=== PATIENT | female | born 1940 | race Caucasian/White ===

== ENCOUNTER 2017-07-31 09:52 | Day surgery (SDC) | payer MEDICARE, OTHER ==
[~2017-07-31] VITALS: Ht 157.5 cm; Wt 102.7 kg
--- NOTE | ~2017-07-31 | OP ---
PATIENT NAME: BARRIE DELGADO MEDICAL RECORD: [id number] :41 LOCATION:[facility] ADMISSION DATE: SURGEON: DONALD BANKS DO DATE OF OPERATION: 07/31/2017 PROCEDURE: EGD with biopsies. INDICATIONS FOR PROCEDURE: Epigastric pain, Quispe's esophagus, heartburn. SCOPE: Olympus video gastroscope. MEDICATIONS: Propofol 170 mg IV per anesthesia. ESTIMATED BLOOD LOSS: Minimal. COMPLICATIONS: None. FINDINGS: Informed consent was given. The patient was made comfortable with the above medication. After reaching an adequate level of sedation by slow IV push, the patient was placed on her left side. The endoscope was advanced under direct visualization through the mouth to the second portion of the duodenum. The upper, middle, and lower thirds of the esophagus appeared normal. At the GE junction, there was some mild evidence of LA class A reflux-induced esophagitis. There was also evidence of possible Quispe's esophagus. Multiple cold forceps biopsies were taken at the squamocolumnar junction to rule out the presence of continued Quispe's. There were no obvious lesions or nodules that required extra biopsies. The endoscope was advanced beyond the GE junction into the stomach and retroflexed to view the cardia, where a small sliding hiatal hernia was present. Throughout the entire stomach, there were patchy areas of erythema and granularity consistent with gastritis. Random biopsies were taken to submit for histology and to rule out H. pylori. The endoscope was advanced beyond the pylorus into the duodenum where the bulb and second portion of the duodenum appeared normal. The endoscope was withdrawn from the patient. The patient tolerated the procedure well and there were no complications. IMPRESSION: 1. LA class A reflux-induced esophagitis. 2. Possible Quispe's esophagus, biopsies pending. 3. Small sliding hiatal hernia. 4. Patchy discontinuous gastritis with biopsies pending. PLAN AND RECOMMENDATIONS: 1. Discharge home when recovery parameters are met. 2. Continue current diet. 3. Continue current medications including pantoprazole 40 mg daily. 4. Consider adding Pepcid or Zantac xrni-qem-trgaelm dosing in the evening. 5. Follow up biopsy results and treat as indicated. 6. Will likely need a repeat upper endoscopy in 2 years for surveillance of short segment Quispe's esophagus. Final recommendations will be dependent on results of biopsies taken today. TRANSINT:[id number] Voice Confirmation ID: [id number] DOCUMENT ID: [id number] OPERATIVE REPORT [id number] BARRIE DELGADO NATHAN A DO at 1119 CC: [id number] DICTATION DATE: 07/31/17 1247 WHALE FISHERMAN: 07/31/17 1319 [facility] 07/31/17 [place] [id number] [place] [id number]
[~2017-07-31 09:52] MED LIST: ARMOUR THYROID90 MG PO; ASPIRIN EC81 M1 PO; CARDURA2 MG PO; CLARITIN 10 MG10 MG PO; COREG12.5 MG PO; CRESTOR10 MG PO; EDARBI40 MG PO; ESTRACE 0.5 MG0.5 MG PO; KLOR-CON M2020 MEQ PO; LASIX20 MG PO; MIRALAX17 GM PO; MIRAPEX1 MG PO; NYSTATIN15 GM TP; OCUVITE TABLET1 TA1 PO; OXYCONTIN10 MG PO; PERCOCET 10/3251 TA1 PO; PROMETRIUM100 MG PO; PROTONIX40 MG PO; SYSTANE 0.3-0.4%5 ML EACH EYE; VITAMIN B COMPL1 TAB PO; VITAMIN D5000 UNIT PO; VITAMIN E400 UNI2 PO
[2017-07-31] MEDS ORDERED: LEVOXYL75 MCG PO (10:22)
[2017-07-31] MEDS ORDERED: GABAPENTIN100 MG PO (10:23)
[2017-07-31] MEDS ORDERED: PROVIGIL200 MG (10:25)
[2017-07-31] MEDS ORDERED: ALDACTONE25 MG PO (10:26)
[2017-07-31] MEDS ORDERED: TORSEMIDE20 MG PO (10:26)
[2017-07-31 10:34] VITALS: BP 151/78; Ht 157.5 cm; Wt 102.7 kg
[2017-07-31 10:41] LABS: BASOPHILS 0.3 % (0-2); EOSINOPHILS 2.5 % (0-7); HEMATOCRIT 35.9 % (36.0-48.0); HEMOGLOBIN 11.5 g/dL (12-16); IMMATURE GRANULOCYTES 0.2 % (0-5); MCH 29.6 pg (26.0-34.0); MCV 92.5 fL (80.0-100.0); PLATELET COUNT 227 10x3/uL (130-400); RBC 3.88 10x6/uL (4.00-5.40); RDW 14.6 % (11.5-14.5); WBC 6.1 10x3/uL (4.8-10.8)
[2017-07-31 10:54] LABS: ANION GAP 13.4 mmol/L (8-16); CALCIUM 9.3 mg/dL (8.5-10.1); CARBON DIOXIDE 25.8 mmol/L (21.0-32.0); CREATININE - SERUM 1.2 mg/dL (0.6-1.3); POTASSIUM - SERUM 4.2 mmol/L (3.5-5.1)
== END 2017-07-31 14:00 | disposition home or self-care (01) ==
LOC: D.OPS 09:52
PROVIDERS: Anesthesiology
DX: R10.13 Epigastric pain (principal); K22.70 Barrett's esophagus without dysplasia; K44.9 Diaphragmatic hernia without obstruction or gangrene; K21.0 Gastro-esophageal reflux disease with esophagitis; I10 Essential (primary) hypertension; I50.9 Heart failure, unspecified; G47.30 Sleep apnea, unspecified; E03.9 Hypothyroidism, unspecified; Z01.812 Encounter for preprocedural laboratory examination

== ENCOUNTER 2017-09-18 11:21 | Day surgery (SDC) | payer MEDICARE, OTHER ==
[~2017-09-18] VITALS: Ht 157.5 cm; Wt 106.4 kg
--- NOTE | ~2017-09-18 | OP ---
PATIENT NAME: BARRIE DELGADO MEDICAL RECORD: [id number] :41 LOCATION:[facility] ADMISSION DATE: SURGEON: DONALD BANKS DO DATE OF OPERATION: 09/18/2017 PROCEDURE: Colonoscopy with polypectomy. INDICATIONS FOR PROCEDURE: Left lower quadrant abdominal pain, colon polyps, gas and bloating. SCOPE: Olympus video pediatric colonoscope. MEDICATIONS: Propofol 450 mg IV per anesthesia. WITHDRAWAL TIME: 9 minutes. ESTIMATED BLOOD LOSS: Minimal. COMPLICATIONS: None. FINDINGS: Informed consent was given. The patient was made comfortable with the above medication. After reaching an adequate level of sedation by slow IV push, the patient was placed on her left side. A digital rectal examination was performed and was normal. The endoscope was then advanced under direct visualization through the rectum to the cecum with confirmation by visualization of the appendiceal orifice and ileocecal valve. The endoscope was slowly withdrawn and mucosa was carefully examined. The prep quality was good. There was a single benign appearing sessile polyp located in the cecum, which measured approximately 2 mm in diameter. It was removed using hot forceps in 1 piece and completely retrieved. In the transverse colon, there were two benign-appearing sessile polyps, which ranged in size from 3-5 mm in diameter. They were both removed using hot forceps. In the distal descending colon and the entire sigmoid colon, there was evidence of mild diverticulosis without diverticulitis. Retroflexion was performed in the rectum with visualization of a normal appearing rectal wall. The endoscope was then withdrawn from the patient. The patient tolerated the procedure well and there were no complications. IMPRESSION: 1. Diverticulosis involving the distal descending colon and sigmoid colon. 2. Three polyps as described above removed using hot forceps. PLAN AND RECOMMENDATIONS: 1. Discharge home when recovery parameters are met. 2. Follow up biopsy specimen results. 3. High fiber diet. 4. Consider supplementation of diet with Metamucil or equivalent psyllium husk fiber 1-2 tablespoons daily to maintain regular soft bowel movements. 5. Recall colonoscopy in 3-5 years. TRANSINT:[id number] Voice Confirmation ID: [id number] DOCUMENT ID: [id number] OPERATIVE REPORT [id number] BARRIE DELGADO DONALD BANKS DO at 6725 CC: [id number] DICTATION DATE: 09/18/17 1419 [employer]URANCE [employer] TITLES: 09/18/[address] [facility] 09/18/17 [place] [id number] [place] [id number]
[~2017-09-18 11:21] MED LIST changes: +ALDACTONE25 MG PO; +GABAPENTIN100 MG PO; +LEVOXYL75 MCG PO; +PROVIGIL200 MG; +TORSEMIDE20 MG PO
[2017-09-18 12:39] VITALS: BP 157/66; Ht 157.5 cm; Wt 106.4 kg
[2017-09-18] MEDS ORDERED: K-DUR20 MEQ PO (12:45)
[2017-09-18] MEDS ORDERED: SINGULAIR10 MG PO (12:46)
[2017-09-18] MEDS ORDERED: MIRAPEX1 MG PO (12:46)
[2017-09-18] MEDS ORDERED: ZOCOR40 MG PO (12:48)
[2017-09-18] MEDS ORDERED: MYCOSTATIN CREA15 GM TOPICAL (12:49)
[2017-09-18] MEDS ORDERED: AVAPRO150 MG PO (12:49)
[2017-09-18] MEDS ORDERED: HYDROCODON-ACE1 EAC9 PO (12:50)
[2017-09-18 12:51] LABS: ANION GAP 14.1 mmol/L (8-16); BASOPHILS 0.2 % (0-2); CALCIUM 9.1 mg/dL (8.5-10.1); CARBON DIOXIDE 25.9 mmol/L (21.0-32.0); EOSINOPHILS 1.6 % (0-7); HEMATOCRIT 35.6 % (36.0-48.0); HEMOGLOBIN 11.3 g/dL (12-16); IMMATURE GRANULOCYTES 0.2 % (0-5); LYMPHOCYTES 27.2 % (15-50); MCH 29.6 pg (26.0-34.0); MCHC 31.7 g/dL (31.0-37.0); MCV 93.2 fL (80.0-100.0); MEAN PLATELET VOLUME 9.1 fL (7.4-10.4); MONOCYTES 9.9 % (2-11); NEUTROPHILS 60.9 % (40-80); PLATELET COUNT 249 10x3/uL (130-400); RBC 3.82 10x6/uL (4.00-5.40); RDW 13.7 % (11.5-14.5); WBC 4.9 10x3/uL (4.8-10.8)
[2017-09-18] MEDS ORDERED: ASCORBIC ACID500 MG PO (12:53)
[2017-09-18] MEDS ORDERED: MAGNESIUM OXID250 MG PO (12:54)
[2017-09-18] MEDS ORDERED: MERIBIN5 MG PO (12:54)
== END 2017-09-18 15:30 | disposition home or self-care (01) ==
LOC: D.OPS 11:21
PROVIDERS: Anesthesiology
DX: K57.30 Diverticulosis of large intestine without perforation or abscess without bleeding (principal); K63.5 Polyp of colon; Z01.812 Encounter for preprocedural laboratory examination

== ENCOUNTER → 2019-01-21 10:59 | Outpatient (CLI) | payer MEDICARE, OTHER ==
[2017-09-18 12:39] VITALS: BMI 42.9
[~2019-01-21 10:59] MED LIST changes: +ASCORBIC ACID500 MG PO; +AVAPRO150 MG PO; +HYDROCODON-ACE1 EAC9 PO; +K-DUR20 MEQ PO; +MAGNESIUM OXID250 MG PO; +MERIBIN5 MG PO; +MYCOSTATIN CREA15 GM TOPICAL; +SINGULAIR10 MG PO; +ZOCOR40 MG PO
== END | disposition home or self-care (01) ==
LOC: D.RT 10:59
PROVIDERS: ATTEND Family Medicine
DX: R09.02 Hypoxemia (principal)

== ENCOUNTER 2020-01-01 05:55 | Day surgery (SDC) | payer MEDICARE, OTHER ==
[~2020-01-01] VITALS: Ht 157.5 cm; Wt 116.4 kg
[2020-01-01 06:27] LABS: BASOPHILS 0.3 % (0-2); EOSINOPHILS 2.7 % (0-7); HEMATOCRIT 36.8 % (36.0-48.0); HEMOGLOBIN 11.3 g/dL (12-16); IMMATURE GRANULOCYTES 0.2 % (0-5); LYMPHOCYTES 22.5 % (15-50); MCH 27.9 pg (26.0-34.0); MCHC 30.7 g/dL (31.0-37.0); MCV 90.9 fL (80.0-100.0); MEAN PLATELET VOLUME 9.1 fL (7.4-10.4); MONOCYTES 12.6 % (2-11); NEUTROPHILS 61.7 % (40-80); PLATELET COUNT 229 10x3/uL (130-400); RBC 4.05 10x6/uL (4.00-5.40); RDW 15.4 % (11.5-14.5); WBC 6.3 10x3/uL (4.8-10.8)
[2020-01-01 06:36] LABS: INR 1.02 (0.85-1.17); PROTIME 13.4 SECONDS (11.6-15.0)
[2020-01-01 06:40] LABS: ANION GAP 11.1 mmol/L (8-16); CALCIUM 9.1 mg/dL (8.5-10.1); CARBON DIOXIDE 31.4 mmol/L (21.0-32.0); CREATININE - SERUM 1.2 mg/dL (0.6-1.3); POTASSIUM - SERUM 4.5 mmol/L (3.5-5.1)
[2020-01-01] MEDS ORDERED: NITROSTAT0.4 MG SL (06:55)
[2020-01-01] MEDS ORDERED: TRIBENZOR 40-11 EAC1 PO (06:55)
[2020-01-01] MEDS ORDERED: BENTYL10 MG PO (06:56)
[2020-01-01] MEDS ORDERED: TORSEMIDE20 MG PO (06:56)
[2020-01-01] MEDS ORDERED: SINGULAIR10 MG PO (06:57)
[2020-01-01] MEDS ORDERED: GABAPENTIN100 MG PO (06:58)
[2020-01-01] MEDS ORDERED: ROPINIROLE HCL1 MG PO (06:58)
[2020-01-01] MEDS ORDERED: PROTONIX40 MG PO (06:58)
[2020-01-01] MEDS ORDERED: SYNTHROID125 MCG PO (06:59)
[2020-01-01] MEDS ORDERED: ALENDRONATE SOD35 MG PO (07:00)
[2020-01-01] MEDS ORDERED: MOBIC7.5 MG PO (07:00)
[2020-01-01] MEDS ORDERED: CARAFATE1 G PO (07:00)
[2020-01-01 07:06] VITALS: BP 151/64; Ht 157.5 cm; Wt 116.4 kg
--- NOTE | 2020-01-01 14:59 | NUR ---
0915 IV DC'ED WITH CATH INTACT. DRESSING. Destiney WILEY R.N. 0945 DRESSED AWAKE & LAERT. GIVEN DISCHARGE INFORMATION INCLUDING: MED REC, SHEET LISTING NSAIDS TO AVOID, GERD HANDOUT, & [facility] POST ENDOSCOPIC D/C INSTRUCTIONS. PT VOICED UNDERSTANDING. TO PRIVATE CAR PER WHEELCHAIR BY THIS NURSE. HOME WITH SISTER. Destiney WILEY R.N.
--- NOTE | 2020-01-04 07:06 | OP ---
PATIENT NAME: BARRIE DELGADO MEDICAL RECORD: [id number] :41 LOCATION:[facility] ADMISSION DATE: SURGEON: DONALD BANKS DO DATE OF OPERATION: 01/01/2020 PROCEDURE: EGD with biopsies. INDICATIONS FOR PROCEDURE: Epigastric pain, GERD, history of possible Quispe's esophagus. This is a 2-year surveillance endoscopy. SCOPE: Olympus video gastroscope. MEDICATIONS: Propofol 120 mg IV per anesthesia. ESTIMATED BLOOD LOSS: Minimal. COMPLICATIONS: None. FINDINGS AND DESCRIPTION OF PROCEDURE: Informed consent was given. The patient was made comfortable with the above medication. After reaching an adequate level of sedation by slow IV push, the patient was placed on her left side. The endoscope was advanced under direct visualization through the mouth to the second portion of the duodenum with ease. The entire esophagus appeared normal down to the GE junction. At the GE junction, there was evidence of LA class A reflux-induced esophagitis. There was no obvious Quispe's esophagus. Cold forceps biopsies were taken from the squamocolumnar junction to submit for histopathology and to rule out the presence of Quispe's. The endoscope was advanced beyond the GE junction into the stomach and retroflexed to view the cardia, where there was a small sliding hiatal hernia. The fundus and body of the stomach appeared normal. In the antrum and prepyloric region, there was some patchy erythema and granularity consistent with mild chronic gastritis. Cold forceps biopsies were taken from the antrum to submit for histopathology and to rule out the presence of H. pylori. The endoscope was advanced beyond the pylorus into the duodenum, which appeared normal to the second portion. The endoscope was withdrawn from the patient. The patient tolerated the procedure well and there were no complications. IMPRESSION: 1. LA class A reflux-induced esophagitis. 2. Small sliding hiatal hernia. 3. Gastritis changes in the antrum and prepyloric region of the stomach. PLAN AND RECOMMENDATIONS: 1. Discharge home when recovery parameters are met. 2. Follow up biopsy specimen results. 3. GERD diet and reflux precautions. 4. Continue current medications. 5. Recall EGD will be dependent on results of biopsy specimens taken today. The patient never had a firm diagnosis of Quispe's esophagus on past on the last endoscopy and if these do not confirm the presence she may not require a surveillance endoscopy. TRANSINT:[id number] Voice Confirmation ID: [id number] DOCUMENT ID: [id number] OPERATIVE REPORT [id number] BARRIE DELGADO,DONALD Phillips DO at 0706 CC: [id number] DICTATION DATE: 01/01/20 0833 [employer]: 01/01/20 1825 [facility] 01/01/20 [place] [id number] [place] [id number]
== END 2020-01-01 09:42 | disposition home or self-care (01) ==
LOC: D.OPS 05:55
PROVIDERS: ATTEND Internal Medicine Gastroenterology
DX: R10.13 Epigastric pain (principal); K21.9 Gastro-esophageal reflux disease without esophagitis; K22.70 Barrett's esophagus without dysplasia